=== PATIENT | male | born 1985 | race Caucasian/White ===

== ENCOUNTER 2016-03-01 13:53 | Emergency (ER) | payer SELFPAY ==
[~2016-03-01] VITALS: Wt 75.0 kg
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
[2016-03-01] MEDS ORDERED: IBUP-1542 PO (14:52)
[2016-03-01] MEDS ORDERED: BACITUD TOP (14:53)
[2016-03-01] MEDS ORDERED: BACITRACIN 0.9 GM OINT TOP ONE (15:00)
[2016-03-01] MEDS ORDERED: BACITRACIN 0.5%/ZINC 28.35 GM OINT TOP ONE (15:30)
== END 2016-03-01 16:09 | disposition home or self-care (01) ==
LOC: FTE 13:53
DX: S01.01XA Laceration without foreign body of scalp, initial encounter (principal); Y08.89XA Assault by other specified means, initial encounter
CPT/HCPCS: 99283

== ENCOUNTER 2018-10-01 14:12 | Emergency (ER) | payer SELFPAY ==
[~2018-10-01] VITALS: Ht 152.4 cm; Wt 82.0 kg
[~2018-10-01 14:12] MED LIST: BACI28.34 TOP; BACITUD TOP; IBUP-1542 PO; IBUP800T48 PO
[2018-10-01 14:32] VITALS: Ht 152.4 cm; Wt 82.0 kg
[2018-10-01 17:25] VITALS: BP 136/87; PULSE 89; RESP 18
== END 2018-10-01 17:26 | disposition home or self-care (01) ==
LOC: FTE 14:12
DX: S91.115A Laceration without foreign body of left lesser toe(s) without damage to nail, initial encounter (principal); W26.8XXA Contact with other sharp object(s), not elsewhere classified, initial encounter; Y92.89 Other specified places as the place of occurrence of the external cause